=== PATIENT | male | born 1965 | race Hispanic/Latino ===

== ENCOUNTER 2017-04-05 10:05 | Day surgery (SDC) | payer OTHER ==
[2017-04-05 10:31] VITALS: BMI 27.2
--- NOTE | 2017-04-05 11:06 | CP.SDSHP ---
Same Day Surgery H & P - History Proposed Procedure: COLONSCOPY Pre-Op Diagnosis: SCREENING - Previous Medical/Surgical History Misc: Other Pain: 2.Mild Pain - Allergies Allergies: Allergies ciprofloxacin [From Cipro] Adverse Reaction (Verified 04/05/17 10:31) FATIGUE - Physical Exam General Appearance: N Vital Signs: Vital Signs 04/05/17 10:35 Temperature 98 F Pulse Rate 65 Respiratory 16 Rate Blood Pressure 119/78 O2 Sat by Pulse 100 Oximetry Mental Status: Alert & Oriented x3 Neuro: WNL Heart: WNL Lungs: WNL GI: WNL - {Optional Preform as Required} Breast: WNL Abdomen: WNL Rectal: Other Integument: WNL : WNL Ortho: WNL ENT: WNL - Impression Pt. Evaluated Today:Candidate for Anesthesia & Procedure: Yes - Date & Time Time: 11:05 Short Stay Discharge - Short Stay Discharge Admitting Diagnosis/Reason for Visit: SCREENING FOR MALIGNANT NEOPLASM OF COLON Disposition: HOME/ ROUTINE
[2017-04-05] MEDS ORDERED: Belladonna-Phenobarbital PO ONE (11:10)
[2017-04-05] MEDS ORDERED: Midazolam 2 MG/2 ML VIAL ONE (11:15)
[2017-04-05] MEDS ORDERED: Propofol 10 mg/ml Inj (20 ML) ONE (11:15)
[2017-04-05] MEDS ORDERED: Glucagon Recombinant 1 mg Inj ONE (11:21)
[2017-04-05 11:50] VITALS: TEMP 97.5; O2SAT 98
[2017-04-05 12:19] VITALS: RESP 18
[2017-04-05 12:44] VITALS: BP 144/86; PULSE 65
== END 2017-04-05 12:40 | disposition home or self-care (01) ==
LOC: C.ENDO 10:05
PROVIDERS: ATTEND Specialist
DX: K51.50 Left sided colitis without complications (principal); K58.9 Irritable bowel syndrome, unspecified; K64.8 Other hemorrhoids; K57.90 Diverticulosis of intestine, part unspecified, without perforation or abscess without bleeding
CPT/HCPCS: 45380; 88305; J1610; J2250; J2704; J3370

== ENCOUNTER 2018-06-16 16:00 | Inpatient (IN) | payer OTHER ==
[2018-06-16 16:17] VITALS: BMI 33.2
[2018-06-16] MEDS ORDERED: Sodium Chloride 0.9% 1,000 ML IV ONE ×2 (17:09→20:36)
[2018-06-16] MEDS ORDERED: Iohexol 240 (50 ml) PO STA (17:09)
--- NOTE | 2018-06-16 17:09 | C.PDOC ---
History Of Present Illness <Giovanna Johnson - Last Filed: 06/16/18 18:52> <Brenna Gordon - Last Filed: 06/16/18 20:53> 52-YEAR-OLD MALE, PRESENTS TO THE EMERGENCY DEPARTMENT WITH COMPLAINTS OF ABDOMINAL DISCOMFORT AND CONSTIPATION FOR THE PAST SEVERAL DAYS. PS "I THINK I HAVE DIVERTICULITIS." (Giovanna Johnson) History Per: Patient History/Exam Limitations: no limitations Current Symptoms Are (Timing): Still Present Severity: Moderate <Giovanna Johnson - Last Filed: 06/16/18 18:52> <Brenna Gordon - Last Filed: 06/16/18 20:53> Time Seen by Provider: 06/16/18 16:45 Chief Complaint (Nursing): Abdominal Pain Past Medical History Reviewed: Historical Data, Nursing Documentation, Vital Signs - Medical History PMH: Diverticulitis, Sleep Apnea Family History: States: No Known Family Hx - Social History Hx Alcohol Use: No Hx Substance Use: Yes - Immunization History Hx Tetanus Toxoid Vaccination: No Hx Influenza Vaccination: No Hx Pneumococcal Vaccination: No <Giovanna Johnson - Last Filed: 06/16/18 18:52> Reviewed: Historical Data, Nursing Documentation, Vital Signs Family History: States: No Known Family Hx <Brenna Gordon - Last Filed: 06/16/18 20:53> Vital Signs: Last Vital Signs Temp 98.4 F 06/16/18 18:34 Pulse 92 H 06/16/18 18:34 Resp 18 06/16/18 18:34 BP 181/88 H 06/16/18 18:34 Pulse Ox 98 06/16/18 18:52 Review Of Systems Constitutional: Negative for: Fever Respiratory: Negative for: Shortness of Breath Gastrointestinal: Positive for: Abdominal Pain, Constipation. Negative for: Nausea, Vomiting Musculoskeletal: Negative for: Back Pain Neurological: Negative for: Weakness, Numbness <Giovanna Johnson - Last Filed: 06/16/18 18:52> Physical Exam - Physical Exam Appears: Non-toxic, No Acute Distress Skin: Normal Color, Warm, Dry, No Rash Head: Atraumatic, Normacephalic Eye(s): bilateral: Normal Inspection, PERRL, EOMI Nose: Normal Oral Mucosa: Moist Lips: Normal Appearing Neck: Normal ROM Cardiovascular: Rhythm Regular, No Murmur Respiratory: Normal Breath Sounds, No Accessory Muscle Use Gastrointestinal/Abdominal: Soft, Tenderness (b/l lower quadrant. +bloating), No Guarding, No Rebound Back: Normal Inspection Extremity: Normal ROM Neurological/Psych: Oriented x3, Normal Speech <Giovanna Johnson - Last Filed: 06/16/18 18:52> ED Course And Treatment - Laboratory Results Result Diagrams: 06/16/18 17:13 06/16/18 17:13 O2 Sat by Pulse Oximetry: 98 Pulse Ox Interpretation: Normal (ra) <Giovanna Johnson - Last Filed: 06/16/18 18:52> - Laboratory Results Result Diagrams: 06/16/18 17:13 06/16/18 17:13 Pulse Ox Interpretation: Normal <Brenna Gordon - Last Filed: 06/16/18 20:53> Progress - Data Reviewed Data Reviewed: Lab, Diagnostic imaging, Old records <Giovanna Johnson - Last Filed: 06/16/18 18:52> Disposition Counseled Patient/Family Regarding: Studies Performed, Diagnosis - Disposition Disposition Time: 19:00 <Giovanna Johnson - Last Filed: 06/16/18 18:52> Discussed With : Leona Weber Comment: accepted the pt on his service and took overr the care at 8:51PM Doctor Will See Patient In The: Hospital Counseled Patient/Family Regarding: Studies Performed, Diagnosis <AleahdeepikaBrenna - Last Filed: 06/16/18 20:53> - Disposition Disposition: HOSPITALIZED Condition: FAIR Forms: [facility] (Bermudian) - Clinical Impression Clinical Impression: Abdominal pain, Acute diverticulitis - Scribe Statement The provider has reviewed the documentation as recorded by the Scribe (Adam Chambers) <Giovanna Johnson - Last Filed: 06/16/18 18:52> <Brenna Gordon - Last Filed: 06/16/18 20:53> - Scribe Statement All medical record entries made by the Scribe were at my direction and personally dictated by me. I have reviewed the chart and agree that the record accurately reflects my personal performance of the history, physical exam, medical decision making, and the department course for this patient. I have also personally directed, reviewed, and agree with the discharge instructions and disposition. (Giovanna Johnson) Physician Patient Turnover Patient Signed Over To: Brenna Gordon Handoff Comments: FU CT, DISPO <Giovanna Johnson - Last Filed: 06/16/18 18:52> Decision To Admit <Giovanna Johnson - Last Filed: 06/16/18 18:52> - Pt Status Changed To: Hospital Disposition Of: Inpatient - Admit Certification Admit to Inpatient:: After my assessment, the patient will require hospitalization for at least two midnights. This is because of the severity of symptoms shown, intensity of services needed, and/or the medical risk in this patient being treated as an outpatient. - InPatient: Physician Admission Certification:: After my assessment, the patient will require hospitalization for at least two midnights. This is because of the severity of symptoms shown, intensity of services needed, and/or the medical risk in this patient being treated as an outpatient. - . Bed Request Type: Regular Admitting Physician: Leona Weber <Brenna Gordon - Last Filed: 06/16/18 20:53> - . Patient Diagnosis: Abdominal pain, Acute diverticulitis
[2018-06-16] MEDS ORDERED: Morphine 4 MG/ML VIAL ONE (17:16)
[2018-06-16] MEDS ORDERED: Iohexol 240 (50 ml) ONE (17:16)
[2018-06-16] MEDS ORDERED: Sodium Chloride 0.9% 1,000 ML ONE ×2 (17:17→20:40)
[2018-06-16 17:18] LABS: BASO % 0.1 % (0.0-2.0); HEMOGLOBIN 16.6 g/dL (12.0-18.0); LYMPH # 0.6 K/uL (1.0-4.3); MEAN CELL VOLUME 87.1 fL (80.0-94.0); MEAN CORPUSCULAR HEMOGLOBIN 31.1 pg (27.0-31.0); MEAN CORPUSCULAR HGB CONC 35.7 g/dL (33.0-37.0); MEAN PLATELET VOLUME 7.6 fL (7.2-11.7); MONO # 0.2 K/uL (0.0-0.8); MONO % 1.3 % (0.0-10.0); NEUT # 11.4 K/uL (1.8-7.0); NEUT % 93.6 % (50.0-75.0); NRBC % 0.3 % (0.0-2.0); PLATELET COUNT 237 K/uL (130-400); RBC 5.33 Mil/uL (4.40-5.90); WHITE BLOOD COUNT 12.1 K/uL (4.8-10.8)
[2018-06-16 17:30] LABS: ALB/GLOB RATIO 1.4 (1.0-2.1); ALBUMIN 4.7 g/dL (3.5-5.0); ALT/SGPT 26 U/L (21-72); AST/SGOT 15 U/L (17-59); BLOOD UREA NITROGEN 18 mg/dL (9-20); CALCIUM 9.9 mg/dl (8.6-10.4); GFR AFRICAN-AMERICAN > 60; GFR NON-AFRICAN AMERICAN > 60; LIPASE 25 U/L (23-300)
[2018-06-16] MEDS ORDERED: Iohexol 350mg/ml 100 ML ONE (18:38)
[2018-06-16 19:08] LABS: LYMPHOCYTE 8 % (20-40); NEUTROPHIL 92 % (50-75); PLATELET ESTIMATE NORMAL (NORMAL); TOTAL CELLS COUNTED 100
[2018-06-16 19:09] LABS: MONOCYTE 0 % (0-10)
[2018-06-16] MEDS ORDERED: Piperacillin/Tazobact 3.375 gm 100 ML IVPB STA (20:43)
[2018-06-16] MEDS ORDERED: metroNIDAZOLE IV 500 mg/100 ml 500 MG/100 ML BAG IVPB SCH (20:45)
[2018-06-16 21:08] VITALS: RESP 20
[2018-06-16] MEDS ORDERED: Piperacillin/Tazobact 3.375 gm 100 ML IVPB ONE (21:47)
[2018-06-16] MEDS ORDERED: metroNIDAZOLE IV 500 mg/100 ml 500 MG/100 ML BAG ONE (21:47)
[2018-06-17] MEDS: Dextrose 5%/0.45% NS 1,000 ML IV SCH ×2 (03:45→14:27)
[2018-06-17] MEDS: Piperacill/Tazo 3.375gm in Dex 3.375 GM/50 ML BAG IVPB SCH ×4 (04:15→21:18)
[2018-06-17 08:10] LABS: URINE BILIRUBIN NEGATIVE (NEGATIVE); URINE BLOOD 3+ (NEGATIVE); URINE CLARITY Clear (Clear); URINE COLOR Yellow (YELLOW); URINE GLUCOSE (UA) NORMAL (Normal); URINE LEUKOCYTE ESTERASE NEG Leu/uL (Negative); URINE PROTEIN 1+ mg/dL (NEGATIVE); URINE UROBILINOGEN NORMAL mg/dL (0.2-1.0)
[2018-06-17] MEDS: Enoxaparin 40 mg Syringe SC SCH (10:59)
--- NOTE | 2018-06-17 15:15 | CT ---
Date of service: 06/16/2018 PROCEDURE: CT Abdomen and Pelvis with contrast HISTORY: abd pain RO DIVERTICULITIS COMPARISON: None. TECHNIQUE: Contrast dose: Axial and reformatted coronal and sagittal CT images of the abdomen and pelvis were obtained after IV and oral contrast administration. Radiation dose: Total exam DLP = 100 mL Visipaque 320 mGy-cm. This CT exam was performed using one or more of the following dose reduction techniques: Automated exposure control, adjustment of the mA and/or kV according to patient size, and/or use of iterative reconstruction technique. FINDINGS: LOWER THORAX: Mild emphysematous changes noted. LIVER: There are at least 2 small less than 5 millimeter low-attenuation lesion noted in the right liver lobe may represent incidental findings such as cyst or small hemangioma. The possibility of neoplasm is less likely. GALLBLADDER AND BILE DUCTS: Unremarkable. PANCREAS: Unremarkable. No gross lesion or ductal dilatation. SPLEEN: Unremarkable. ADRENALS: Diffuse enlargement of the adrenal glands noted suggestive of hypertrophy. KIDNEYS AND URETERS: Unremarkable. No hydronephrosis. No solid mass. VASCULATURE: Unremarkable. No aortic aneurysm. BOWEL: There is segmental enlargement of the sigmoid colon surrounding with mild inflammatory changes. Findings suspicious for acute diverticulitis. Scattered colonic diverticulosis noted. The descending colon is collapsed. No evidence of abscess formation. No evidence of small bowel obstruction. APPENDIX: Normal appendix. PERITONEUM: Unremarkable. No free fluid. No free air. LYMPH NODES: Unremarkable. No enlarged lymph nodes. BLADDER: Unremarkable. REPRODUCTIVE: Unremarkable. BONES: No acute fracture. OTHER FINDINGS: None. IMPRESSION: Findings suggestive of acute sigmoid diverticulitis. Segmental thickening of the sigmoid colon. Further assessment of the large bowel after the acute phase of diverticulitis is suggested to exclude underlying neoplasm. Additional findings as described above. Preliminary report was submitted by [facility].
[2018-06-17 16:21] VITALS: O2SAT 96
[2018-06-18] MEDS: Dextrose 5%/0.45% NS 1,000 ML IV SCH ×3 (01:20→20:04)
[2018-06-18] MEDS: Piperacill/Tazo 3.375gm in Dex 3.375 GM/50 ML BAG IVPB SCH ×4 (04:04→22:00)
--- NOTE | 2018-06-18 08:03 | CON ---
Copied To: Tamika Bond MD Attending MD: Tamika Bond MD DATE: 06/17/2018That is from Dr. Tamika Bond to Dr. Leona Weber. I was called for GI consultation by the admitting MD as well as the ER staff last night. The patient is seen and fully examined on 06/17/2018. The entire chart is reviewed including but not limited to most recent lab and radiology study results, current and the previous medication list, current and the previous medical events, allergy to medication list as well as all the available current and the previous medical records. Case discussed with the staff at length. HISTORY OF PRESENT ILLNESS: This is a 52-year-old male who was admitted to the hospital through the emergency room with severe abdominal pain, recurrent episodes of nausea and vomiting, dyspepsia with change of bowel movement for the last 4 to 5 days prior to his admission with loss of appetite. No reported hematemesis, but rectal bleeding on and off. No reported chest pain, palpitation, significant shortness of breath, or actual chills or fever. PAST MEDICAL HISTORY: Including peptic ulcer disease, diverticulosis, internal hemorrhoids with reported borderline hypertension. MEDICATIONS: Current medications plus admission medication lists were reviewed. FAMILY HISTORY: Noncontributory. SOCIAL HISTORY: Denied any recent alcohol intake but positive for substance abuse. ALLERGIES TO MEDICATIONS: UNCLEAR. LABORATORY DATA: Initial blood workup post admission showed leukocytosis of 12.1. Blood glucose level 144 with CO2 content of 18 indicative of metabolic acidosis. PHYSICAL EXAMINATION: GENERAL: A 52-year-old male, awake, alert, oriented, complaining of severe midepigastric and left lower quadrant pain, admitted with periods of nausea and vomiting for the last 3 to 4 days prior to his admission. VITAL SIGNS: The patient is afebrile with pulse of 94, respiratory rate 20 to 22, blood pressure 178/82. HEENT: Showed pale dry oral mucoid membrane mildly. Nonicteric sclerae. LYMPH NODES: No lymphadenitis or lymphadenopathy. HEART: Positive S1 and S2 with increased rate. LUNGS: Clear. Breathing sounds are present bilaterally but decreased at bases. ABDOMEN: Soft with [id number] distention with midepigastric as well as left lower quadrant abdominal tenderness. No mass or organomegaly. No rebound tenderness or guarding. RECTAL: The patient refused. EXTREMITIES: Without significant clubbing, cyanosis, or edema. NEUROLOGIC: No reported new neurological deficits, sensory or motor. No focal deficits reported. IMPRESSION: 1. Re-exacerbation of peptic ulcer disease. 2. Diverticulosis with acute diverticulitis and change of bowel movement habit. 3. Rule out occult gastrointestinal malignancy. SUGGESTIONS: 1. Agree with your plan. 2. Rehydration. 3. Keep the patient n.p.o. for now except oral medication. 4. IV Flagyl. 5. Proton pump inhibitors. 6. Reglan IV. 7. The patient may need endoscopic evaluation of the upper GI tract in the meantime, if his symptoms of nausea and dyspepsia persists. 8. Cancer markers. 9. We will follow up closely with you. Thank you for letting me participate in your patient's case management. Tamika Bond MD
[2018-06-18] MEDS: Enoxaparin 40 mg Syringe SC SCH (09:26)
[2018-06-18] MEDS ORDERED: Pneumococcal 23-Valent Vaccine IM ONE (10:00)
[2018-06-18 10:53] LABS: BASO # 0.1 K/uL (0.0-0.2); BASO % 0.7 % (0.0-2.0); EOS # 0.1 K/uL (0.0-0.7); EOS % 1.1 % (0.0-4.0); HEMOGLOBIN 15.2 g/dL (12.0-18.0); LYMPH % 16.2 % (20.0-40.0); MEAN CELL VOLUME 87.7 fL (80.0-94.0); MEAN CORPUSCULAR HGB CONC 35.3 g/dL (33.0-37.0); MEAN PLATELET VOLUME 7.5 fL (7.2-11.7); MONO # 1.2 K/uL (0.0-0.8); NEUT # 8.7 K/uL (1.8-7.0); RBC 4.9 Mil/uL (4.40-5.90); RED CELL DISTRIBUTION WIDTH 13.6 % (11.5-14.5); WHITE BLOOD COUNT 12.1 K/uL (4.8-10.8)
[2018-06-18 10:57] LABS: INR 1.2; PROTHROMBIN TIME 12.8 SECONDS (9.7-12.2)
[2018-06-18 11:13] LABS: ALB/GLOB RATIO 1.4 (1.0-2.1); ALBUMIN 3.9 g/dL (3.5-5.0); ALT/SGPT 22 U/L (21-72); AST/SGOT 13 U/L (17-59); BLOOD UREA NITROGEN 10 mg/dL (9-20); CALCIUM 8.9 mg/dl (8.6-10.4); GFR AFRICAN-AMERICAN > 60; GFR NON-AFRICAN AMERICAN > 60
--- NOTE | 2018-06-18 13:19 | PN ---
Copied To: Tamika Bond MD Attending MD: Tamika Bond MD DATE: 06/18/2018 LOCATION: 369 bed B. SUBJECTIVE: This is a 52-year-old male seen and examined initially for GI consultation on 06/17/2018, reexamined again today, appeared to be awake and alert with a complaint of intermittent period of midepigastric and left lower quadrant pain with some nausea and dyspepsia. No reported active bleeding. The entire chart is reviewed including but not limited to most recent lab and radiology study results, current and the previous medication list, current and the previous medical events, and today's lab results still pending. Official report of the CAT scan of the abdomen and pelvis is seen at the time of the admission indicative of acute sigmoid diverticulitis and the colonoscopy was suggested. PHYSICAL EXAMINATION: GENERAL: A 52-year-old male. VITAL SIGNS: Afebrile with pulse of 72, respiratory rate 18 to 20, blood pressure of 120/82. HEENT: Showed mildly pale, dry oral mucous membrane. Nonicteric sclerae. LUNGS: Few scattered crepitation. Decreased air entry at bases. HEART: Positive S1 and S2. ABDOMEN: Soft with mild generalized tenderness, but mainly in the midepigastric and left lower quadrant area. No mass or organomegaly. No rebound tenderness or guarding. EXTREMITIES: Without edema, clubbing or cyanosis. NEUROLOGICAL: No reported new focal deficits, sensory or motor. IMPRESSION: 1. Diverticulosis with acute diverticulitis. 2. Re-exacerbation of peptic ulcer disease, to rule out gastric versus duodenal ulcer. 3. Borderline hypertension with known history of sleep apnea, stable. SUGGESTIONS: 1. Agree with your plan. 2. Advance diet gradually. 3. Endoscopic evaluation of the GI tract when the patient is more stable clinically. Further recommendation to follow. Tamika Bond MD
[2018-06-19 00:55] VITALS: PULSE 60
[2018-06-19] MEDS: Piperacill/Tazo 3.375gm in Dex 3.375 GM/50 ML BAG IVPB SCH ×2 (04:03→09:27)
--- NOTE | 2018-06-19 08:44 | CP.PCM.PN ---
Subjective - Date & Time of Evaluation Date of Evaluation: 06/19/18 Time of Evaluation: 07:20 - Subjective Subjective: PGY3 Resident - Medicine Progress Note for Dr. Weber Patient seen and examined at bedside. No acute distress. No overnight events. Patient reports he is feeling well. Tolerating bland diet. 12-point review of systems is otherwise negative without any additional acute complaints. --- Patient is stable for discharge per Dr. Weber. Patient should resume all medications as outlined in this document. Additionally, patient should take the new medications listed below (scripts provided). Please make an appointment and follow up with your Primary Doctor within one week of discharge. Please make an appointment with a Horse Farm Manager or a Colorectal Surgeon for your diagnosis of Diverticulitis. Patient should return to ED immediately if symptoms return or worsen. Instructions discussed with patient who understood and agreed. Newly prescribed medications: Metro 500mg PO q8H #21 Cefdinir 300mg PO BID #14 Objective - Vital Signs/Intake and Output Vital Signs (last 24 hours): Temp Pulse Resp BP Pulse Ox 98.2 F 60 20 116/68 96 06/19/18 00:00 06/19/18 00:00 06/19/18 00:00 06/19/18 00:00 06/19/18 00:00 Intake and Output: 06/19/18 06/19/18 06:59 18:59 Intake Total 200 Balance 200 - Medications Medications: Current Medications Enoxaparin Sodium (Lovenox) 40 mg SC DAILY [facility] Last Admin: 06/18/18 09:26 Dose: Not Given Metronidazole (Flagyl) 500 mg in 100 mls @ 100 mls/hr IVPB STAT [facility] PRN Reason: Protocol Piperacillin Sod/Tazobactam Sod (Zosyn 3.375 Gm Iv Premix) 3.375 gm in 50 mls @ 100 mls/hr IVPB Q6H [facility] PRN Reason: Protocol Last Admin: 06/19/18 04:03 Dose: 100 mls/hr Dextrose/Sodium Chloride (Dextrose 5%/0.45% Ns 1000 Ml) 1,000 mls @ 100 mls/hr IV .Q10H [facility] Last Admin: 06/18/18 20:04 Dose: Not Given Morphine Sulfate (Morphine) 2 mg IVP Q4 PRN PRN Reason: Pain, severe (8-10) Ondansetron HCl (Zofran Inj) 4 mg IVP Q6 PRN PRN Reason: Nausea/Vomiting Last Admin: 06/17/18 04:20 Dose: 4 mg Pantoprazole Sodium (Protonix Inj) 40 mg IVP DAILY [facility] Last Admin: 06/18/18 09:26 Dose: Not Given Zolpidem Tartrate (Ambien) 5 mg PO HS PRN PRN Reason: Insomnia Last Admin: 06/17/18 21:43 Dose: 5 mg - Labs Labs: 06/18/18 10:40 06/18/18 10:40 PT 12.8 SECONDS (9.7-12.2) H 06/18/18 10:40 INR 1.2 06/18/18 10:40 APTT 31 SECONDS (21-34) 06/18/18 10:40 - Additional Findings Additional findings: - Constitutional Appears: Non-toxic, No Acute Distress - Head Exam Head Exam: ATRAUMATIC, NORMAL INSPECTION - Eye Exam Eye Exam: EOMI, Normal appearance - ENT Exam ENT Exam: Mucous Membranes Dry - Neck Exam Neck Exam: absent: Tenderness, Lymphadenopathy - Respiratory Exam Respiratory Exam: NORMAL BREATHING PATTERN. absent: Rales, Wheezes - Cardiovascular Exam Cardiovascular Exam: Regular Rate, +S1, +S2 - GI/Abdominal Exam GI & Abdominal Exam: Soft, Normal Bowel Sounds. absent: Tenderness - Extremities Exam Extremities Exam: Full ROM, Normal Inspection. absent: Pedal Edema, Tenderness - Back Exam Back Exam: NORMAL INSPECTION. absent: CVA tenderness (L), CVA tenderness (R) - Neurological Exam Neurological Exam: Alert, Awake, Oriented x3 - Psychiatric Exam Psychiatric exam: Normal Affect, Normal Mood - Skin Skin Exam: Dry, Intact, Normal Color, Warm Assessment and Plan - Assessment and Plan (Free Text) Assessment: Acute Diverticulitis 06/19: stable for discharge per Dr. Horan -CT abdomen - acute sigmoid diverticulosis with evidence of diverticulitis. see full report. -advance diet gradually -endoscopic eval of GI when patient is more stable. -Continue flagyl 2gm IVPB q4H and Zosyn 3.375Gm IVPB Q6H -continue zofran 4mg IVP q6H PRN Case discussed with attending. All medical management as per Dr. Katelynn Weber.
--- NOTE | 2018-06-19 08:47 | HP ---
Copied To: Leona Weber MD Attending MD: Leona Weber MD HISTORY OF PRESENT ILLNESS: The patient is a 52 year-old male abdominal pain. Patient has history of recurrent diverticulitis and testicular abscess. The patient is a smoker. The patient drinks occasionally. PHYSICAL EXAMINATION: GENERAL: The patient is awake, alert, and oriented. VITAL SIGNS: Temperature 98, pulse 90. HEENT: Within normal limits. NECK: Supple. CHEST: Symmetrical. HEART: Regular. ABDOMEN: Tenderness in lower abdomen. EXTREMITIES: No edema. ASSESSMENT AND PLAN: The patient has diverticulitis. The patient is to bed rest, IV antibiotics, and supportive care. Leona Weber MD
[2018-06-19] MEDS: Enoxaparin 40 mg Syringe SC SCH (09:22)
[2018-06-19 10:24] VITALS: BP 137/84; TEMP 98.1
--- NOTE | 2018-06-19 14:58 | PN ---
Copied To: Tamika Bond MD Attending MD: Tamika Bond MD DATE: 06/19/2018 LOCATION: 369, bed B. SUBJECTIVE: This is a 52-year-old male, seen and examined early in rounds without any significant clinical changes, denying any abdominal pain or evidence of active bleeding, tolerating oral intake well. The entire chart is reviewed including but not limited to the most recent lab and radiology study results, current and the previous medications list, current and the previous medical events and today's lab results still pending. PHYSICAL EXAMINATION: GENERAL: A 52-year-old male, awake, alert and oriented. VITAL SIGNS: Afebrile with pulse of 62, respiratory rate of 20 to 22, and blood pressure 120/66. HEENT: Showed pale, dry oral mucous membrane. Nonicteric sclerae. LUNGS: Few scattered crepitation. Decreased air entry at bases. HEART: Positive S1 and S2. ABDOMEN: Soft with sight distension. No mass or organomegaly. No rebound tenderness or guarding. EXTREMITIES: Without edema, clubbing, or cyanosis. NEUROLOGICAL: No reported new neurological deficits, sensory, or motor. IMPRESSION: 1. Diverticulosis with diverticulitis, subsided. 2. Re-exacerbation of peptic ulcer disease. 3. Reported history of sleep apnea, stable. SUGGESTIONS: 1. Advance diet . 2. May discharge home if he is stable clinically and if okay with the admitting MD. Tamika Bond MD
== END 2018-06-19 11:20 | disposition home or self-care (01) | DRG 182 ==
LOC: C.ER 16:00 → C.9E 20:48 → C.3T 22:06
PROVIDERS: ADMIT Internal Medicine Pulmonary Disease; ATTEND Internal Medicine Pulmonary Disease
DX: K57.32 Diverticulitis of large intestine without perforation or abscess without bleeding (principal); K62.5 Hemorrhage of anus and rectum; K59.00 Constipation, unspecified; G47.30 Sleep apnea, unspecified; F17.200 Nicotine dependence, unspecified, uncomplicated; Z87.11 Personal history of peptic ulcer disease